=== PATIENT | female | born 1985 | race Two or more races ===

== ENCOUNTER 2020-02-25 22:29 | Emergency (ER) | payer OTHER ==
[~2020-02-25] VITALS: Ht 170.2 cm; Wt 54.4 kg
[2020-02-25 22:30] VITALS: BP 124/75
--- NOTE | 2020-02-25 22:40 | NUR ---
PT AAOX4. BIBRA WAS SEEN UNCONSIOUS. ONCE RA TRIED STARTING AN IV PT WOKE UP. DENIES SI OR HI. AWAKE AND ALERT. PLACED ON MONITOR AND PULSE OX. VSS. NO ACUTE DISTRESS NOTED.
[2020-02-25 23:08] LABS: BASOPHILS % (AUTO) 0.5 % (0.0-2.0); EOSINOPHILS % (AUTO) 1.5 % (0.0-6.0); HEMATOCRIT 42 % (33-45); HEMOGLOBIN 14.3 g/dL (11.5-14.8); LYMPHOCYTES # (AUTO) 1.3 /CMM (0.8-4.8); LYMPHOCYTES % (AUTO) 24.1 % (20.0-44.0); MEAN CORPUSCULAR HGB CONC 34 g/dl (31.0-36.0); MEAN CORPUSCULAR VOLUME 97 fL (82-100); MONOCYTES # (AUTO) 0.4 /CMM (0.1-1.30); MONOCYTES % (AUTO) 7.7 % (2.0-12.0); NEUTROPHILS # (AUTO) 3.6 /CMM (1.8-8.9); NEUTROPHILS % (AUTO) 66.2 % (43.0-81.0); PLATELET COUNT (AUTO) 193 /CMM (150-450); RED BLOOD CELL COUNT(AUTO) 4.33 MIL/uL (4.0-5.2); WHITE BLOOD COUNT (AUTO) 5.4 K/uL (4.3-11.0)
[2020-02-25 23:17] LABS: CALCIUM, SERUM 9.2 mg/dL (8.5-10.1); CREATININE 0.7 mg/dL (0.6-1.3); POTASSIUM 3.7 mmol/L (3.5-5.1)
[2020-02-25 23:22] LABS: ALBUMIN 4.4 g/dL (3.4-5.0); BILIRUBIN,DIRECT 0.1 mg/dL (0.0-0.2); BILIRUBIN,TOTAL 0.3 mg/dL (0.2-1.0); TOTAL PROTEIN, SERUM 7.8 g/dL (6.4-8.2)
[2020-02-25 23:23] LABS: SALICYLATE 0.6 mg/dL (2.8-20.0)
--- NOTE | 2020-02-25 23:28 | NUR ---
LOOM CHANGER AT BEDSIDE FOR EVAL
[2020-02-25 23:47] LABS: APPEARANCE,URINE Clear (CLEAR); BILIRUBIN,URINE Negative (NEGATIVE); BLOOD, URINE Negative Ery/uL (NEGATIVE); COLOR,URINE Yellow (YELLOW); KETONES,URINE Negative (NEGATIVE); LEUKOCYTE ESTERASE ,URINE Negative (NEGATIVE); NITRITE, URINE Negative (NEGATIVE); PROTEIN,URINE Negative (NEGATIVE); UGLUCOSE Negative (NEGATIVE); UROBILINOGEN,URINE 0.2 EU/dL (0.2)
--- NOTE | 2020-02-26 00:16 | NUR ---
Patient discharged to home in stable condition. Written and verbal after care instructions given. Patient verbalizes understanding of instruction. Pt ambulated with steady gait. Left with her friends. IV removed. Catheter intact and site benign. Pressure and 4x4 applied to site. No bleeding noted.
== END 2020-02-26 00:17 | disposition home or self-care (01) ==
LOC: ER 22:31
DX: F10.129 Alcohol abuse with intoxication, unspecified (principal); Y90.9 Presence of alcohol in blood, level not specified
CPT/HCPCS: 36415; 80048; 80076; 80305; 80307; 80329; 81001; 84703; 85025; 99283; G0480; 81000-TC

== ENCOUNTER 2021-05-24 20:43 | Emergency (ER) | payer OTHER ==
[~2021-05-24] VITALS: Ht 167.6 cm; Wt 56.7 kg
--- NOTE | 2021-05-24 21:15 | NUR ---
PATIENT BIBRA 89 FROM HOME FOR C/O LOWER BAD PAIN X 1 DAY. PATIENT HAD BACK SX AT DISC ON 05/20/21. PATIENT HAD SX INCISION ON LOWER ABD. REC'D FENTANYL 100MCG IV MANAGER NEW PRODUCT. +N/V. PATIENT IS A/OX 4, RR EVEN AND UNLABORED, NO SIGNS OF SOB NOTED. PATIENT CONNECTED TO CARDIOVASCULAR DISEASE SPECIALIST AND POX.
[2021-05-24 21:33] LABS: BASOPHILS % (AUTO) 0.2 % (0.0-2.0); EOSINOPHILS % (AUTO) 0.2 % (0.0-6.0); HEMATOCRIT 38 % (33-45); HEMOGLOBIN 12.7 g/dL (11.5-14.8); LYMPHOCYTES # (AUTO) 0.6 K/uL (0.8-4.8); LYMPHOCYTES % (AUTO) 4.2 % (20.0-44.0); MEAN CORPUSCULAR HGB CONC 34 g/dl (31.0-36.0); MEAN CORPUSCULAR VOLUME 92 fL (82-100); MONOCYTES # (AUTO) 0.5 K/uL (0.1-1.30); MONOCYTES % (AUTO) 3.9 % (2.0-12.0); NEUTROPHILS % (AUTO) 91.5 % (43.0-81.0); PLATELET COUNT (AUTO) 278 K/uL (150-450); RED BLOOD CELL COUNT(AUTO) 4.11 MIL/uL (4.0-5.2); WHITE BLOOD COUNT (AUTO) 13.2 K/uL (4.3-11.0)
[2021-05-24] MEDS ORDERED: ONDANSETRON HCL/PF 4 MG/2 ML VIAL ONE (21:33)
[2021-05-24] MEDS: IV NS 0.9% 1,000 ML BAG IV ONE (21:41)
[2021-05-24] MEDS: ONDANSETRON HCL/PF - ER 4 MG/2 ML VIAL IV ONE (21:41)
[2021-05-24 21:43] LABS: CALCIUM, SERUM 9.2 mg/dL (8.5-10.1); CREATININE 0.7 mg/dL (0.6-1.3); POTASSIUM 3.6 mmol/L (3.5-5.1)
[2021-05-24 21:48] LABS: ALBUMIN 3.8 g/dL (3.4-5.0); BILIRUBIN,DIRECT 0.1 mg/dL (0.0-0.2); BILIRUBIN,TOTAL 0.6 mg/dL (0.2-1.0); TOTAL PROTEIN, SERUM 7.5 g/dL (6.4-8.2)
[2021-05-24] MEDS ORDERED: IOHEXOL-300 100 ML VIAL IV ONE (21:58)
[2021-05-24] MEDS ORDERED: IV NS 0.9% 250 ML IV ONE (21:58)
[2021-05-24] MEDS ORDERED: CT SWABBABLE VALVE TRANS SET 1 EA INFUS.SET MC ONE (22:04)
[2021-05-24 22:36] LABS: BILIRUBIN,URINE SMALL (NEGATIVE); COLOR,URINE DARK YELLOW (YELLOW); LEUKOCYTE ESTERASE ,URINE SMALL (NEGATIVE); NITRITE, URINE NEGATIVE (NEGATIVE); PROTEIN,URINE 30 mg/dl (NEGATIVE); UGLUCOSE NEGATIVE (NEGATIVE); UROBILINOGEN,URINE 0.2 EU/dL (0.2)
[2021-05-24 22:49] LABS: BACTERIA,URINE Moderate /HPF (None Seen); SQUAMOUS EPITHELIAL CELL,UR Moderate /HPF (None Seen); WBC,URINE 21-50 /HPF (0-3)
[2021-05-24 22:50] LABS: MUCUS,URINE Few /LPF (None Seen)
[2021-05-24] MEDS ORDERED: CEFTRIAXONE 1GM BAG (ER ONLY) 50 ML IV ONE (23:03)
[2021-05-24] MEDS: CEFTRIAXONE 1GM BAG (ER ONLY) 1 GM/50 ML PIGGYBACK IV ONE (23:08)
[2021-05-24] MEDS ORDERED: ONDA4TAB11 PO (23:20)
[2021-05-24] MEDS ORDERED: CEPH500C2 PO (23:20)
[2021-05-24] MEDS ORDERED: MORPHINE SULFATE INJ 4 MG/ML DISP.SYRIN ONE (23:21)
[2021-05-24] MEDS: MORPHINE SULFATE INJ 2 MG/ML DISP.SYRIN IV ONE (23:25)
[2021-05-24 23:47] VITALS: BP 123/51
--- NOTE | 2021-05-24 23:47 | NUR ---
Patient discharged to home in stable condition. RX and Written and verbal after care instructions given. Patient verbalizes understanding of instruction.
== END 2021-05-24 23:48 | disposition home or self-care (01) ==
LOC: ER 20:44
DX: G89.18 Other acute postprocedural pain (principal); N39.0 Urinary tract infection, site not specified; Z88.5 Allergy status to narcotic agent; Z91.040 Latex allergy status; Z98.890 Other specified postprocedural states; Z60.2 Problems related to living alone
CPT/HCPCS: 36415; 74177; 80048; 80076; 81001; 84702; 84703; 85025; 87086; 96361; 96365; 96375; 99285; J0696; J2270; J2405 ×2; J7050; Q9967